=== PATIENT | female | born 1965 | race Caucasian/White ===

== ENCOUNTER 2020-04-23 01:55 | Outpatient (CLI) | payer OTHER, SELFPAY ==
[2020-04-23 19:19] LABS: SARS-CoV-2 RNA PCR Negative
== END 2020-04-23 01:56 | disposition home or self-care (01) ==
LOC: ANHCOVIDDT 01:55
PROVIDERS: Visit Provider Surgery Plastic and Reconstructive Surgery
DX: Z01.812 Encounter for preprocedural laboratory examination (principal); Z20.828 Contact with and (suspected) exposure to other viral communicable diseases
CPT/HCPCS: 87635; C9803; U0003

== ENCOUNTER 2020-04-25 01:14 | Day surgery (SDC) | payer OTHER, SELFPAY ==
[2020-04-17 14:02] VITALS: BMI 21.1
[2020-04-25] VITALS (7 sets, daily range): BP systolic 106–149; BP diastolic 61–84; PULSE 42–68; RESP 10–18; TEMP 36.1–36.3; O2SAT 93–100
[2020-04-25] MEDS: LACTATED RINGERS 1,000 ML 30 ML IV CONT ×2 (13:55→16:46)
--- NOTE | 2020-04-25 14:03 | WPDANESEPPF ---
Anes - Initial Pre Proc Eval Procedure: Operation Date: 04/25/20 15:30 Proposed Procedures p Bilateral Breast Implant Exchange - Toney Young MD Date/Time: 04/25/20 14:03 Surgeon: Toney Young MD Pre Op Diagnosis: hx of breast augmentation Patient Data Age: 54 Gender: F Height: 5 ft 8 in Weight: 63 kg Allergies Allergy/AdvReac Type Severity Reaction Status Date / Time No Known Allergies Allergy Verified 04/23/20 08:21 Home Medications Medication Instructions Recorded Confirmed Type melatonin 5 mg PO HS PRN 04/17/20 04/17/20 History carisoprodol 350 mg tablet 350 mg PO TID PRN #21 tablet 04/23/20 04/23/20 Rx docusate sodium 100 mg capsule 100 mg PO DAILY #14 cap 04/23/20 Rx ondansetron HCl 4 mg tablet 4 mg PO Q8H #28 tablet 04/23/20 Rx oxycodone-acetaminophen 5 mg-325 1 tablet PO Q6H PRN #15 tablet 04/23/20 04/23/20 Rx mg tablet Patient hx anesthesia problems: post op nausea/vomiting Family hx anesthesia problems: none PMFSH Past Medical History Medical History (Updated 04/25/20 @ 14:04 by Hamzah South MD) Anxiety Surgical History Surgical History (Updated 04/25/20 @ 14:04 by Hamzah South MD) H/O breast augmentation Social History Social History Smoking status: Never smoker Alcohol intake: current Substance use: never Substance use type: does not use Living arrangements: with family Gender identity (if verbalized by the patient): Female Sexual Orientation (if Verbalized by the Patient): Straight or Heterosexual Spiritual care concerns: No Anes - Eval Final PreProcedure Day of Procedure 04/25/20 14:03 Patient weight: normal Heart: regular rate and rhythm Lungs: clear to auscultation Airway: Mallampati scale class II Neurological: alert and oriented Last oral intake: >/= 8 hours ASA classification: I Emergent: no Anesthetic plan: proceed Anesthesia type and monitoring: general LMA and standard monitoring Informed Consent: The patient's anesthetic plan and its attendant risks and benefits were discussed with the patient/family/POA. Questions were solicited and answers provided to the satisfaction of the patient/family/POA.
[2020-04-25] MEDS: SCOPOLAMINE 1.5 MG PATCH TRANSDERM (14:15)
[2020-04-25] MEDS: FAMOTIDINE 20 MG/2 ML VIAL IV PUSH (14:17)
[2020-04-25] MEDS: ONDANSETRON INJ 4 MG/2 ML VIAL IV PUSH (14:18)
--- NOTE | 2020-04-25 14:52 | WPDHPUPDATE1 ---
History and Physical Update Update Date/Time: 04/25/20 14:52 History and Physical has been reviewed, including an updated exam of the patient. There are NO changes in the patient's condition. Risks, benefits, and alternatives have been discussed and questions answered. Patient agrees to proceed with procedure.
--- NOTE | 2020-04-25 15:11 | P.OP_ITS ---
Procedure Note - Detailed Date of procedure: 04/25/20 Pre-op diagnosis: hx of breast augmentation Post-op diagnosis: same Procedure performed: Bilateral breast implant exchange Description of procedure: In the preoperative holding area we discussed her risks, benefits, alternatives in great detail. I want her to be very realistic about the risks involved as well as expectations. We discussed final sizing in extensive detail. I want to make sure she was well informed making the right decision for her. All questions answered to her satisfaction today and consent obtained. She was taken to the operating room placed supine on the operating room table. Anesthesia was provided by anesthesiology and she was prepped and draped in the standard sterile fashion. Surgical time-out was taken. 1% lidocaine and 0.25% Marcaine with epinephrine was used anesthetize as a field block. Tegaderm nipple Pa were placed.A 15 blade used to make an incision along the IMF removing the previous incision. The implants were identified and these were removed. I verified the size previously were 270cc The left capsule was extremely calcified. I did a new near total capsulectomy on the left removing any of the thickened concerning capsule. Because of the atypical appearance I did send this to pathology. I irrigated with more than 3 L of saline solution on TUR tubing. I then irrigated copiously with triple antibiotic and Betadine solution. Wash my gloves and introduced the implants into the pocket using a Driver funnel. This was closed using 2-0 Vicryl followed by 3-0 Monocryl in a running subcuticular 4-0 Monocryl and tissue glue. Tolerated well. Anesthesia: GLMA Surgeon: Toney Young MD Estimated blood loss (mL): 20 Drains: No Packing: No Pathology: yes (Left breast capsule) Complications: No immediate complications Condition: stable Disposition: PACU Findings: Bilateral implant exchange, old implants 270cc saline. [facility] Right REF [id number] SN [id number] Left REF [id number] SN [id number]
[2020-04-25] MEDS: ceFAZolin 2 GM/D5W 50 ML 2 GM/50 ML BAG IVPB (15:21)
[2020-04-25] MEDS: LIDO 1%/EPINEPHRINE 1:100,000 20 ML VIAL 30 ML INFILTRATE (15:52)
[2020-04-25] MEDS: fentaNYL CITRATE INJ (*CRX) 100 MCG/2 ML VIAL 25 MCG IV PUSH ×2 (17:25→17:30)
[2020-04-25] MEDS: oxyCODONE HCL (*CRX) 5 MG TAB IR PO (18:07)
== END 2020-04-25 18:50 | disposition home or self-care (01) ==
PROVIDERS: Visit Provider Surgery Plastic and Reconstructive Surgery
PROC: (CPT 19342; principal; 2020-04-25 15:30)
DX: Z41.1 Encounter for cosmetic surgery (principal)
CPT/HCPCS: 19371; 19340; 19328; 88304; A9270; J0690; J1100; J1580; J2250; J2405; J2704; J3010; J7120

== ENCOUNTER 2020-09-02 00:36 | Day surgery (SDC) | payer OTHER, SELFPAY ==
[2020-08-26 16:37] VITALS: BMI 21.3
[2020-09-02] VITALS (9 sets, daily range): BP systolic 118–155; BP diastolic 59–89; PULSE 47–74; RESP 10–18; TEMP 36.4–36.7; O2SAT 100
[2020-09-02] MEDS: LACTATED RINGERS 1,000 ML 30 ML IV CONT ×2 (11:30→16:09)
--- NOTE | 2020-09-02 12:54 | WPDANESEPPF ---
Anes - Initial Pre Proc Eval Procedure: Operation Date: 09/02/20 13:30 Proposed Procedures p Bilateral Inframammary Fold Revision, Possible Right Capsulectomy - Toney Young MD Date/Time: 09/02/20 12:54 Surgeon: Toney Young MD Pre Op Diagnosis: hx of breast augmentation Patient Data Age: 54 Gender: F Height: 1.73 m Weight: 65.7 kg Last Vital Signs Temp 36.7 C 09/02/20 11:24 Pulse 47 L 09/02/20 11:24 Resp 18 09/02/20 11:24 BP 118/75 09/02/20 11:24 Pulse Ox 100 09/02/20 11:24 Allergies Allergy/AdvReac Type Severity Reaction Status Date / Time No Known Allergies Allergy Verified 09/02/20 11:32 Home Medications Medication Instructions Recorded Confirmed Type melatonin 10 mg PO HS PRN 04/17/20 09/02/20 History docusate sodium 100 mg capsule 100 mg PO DAILY #14 cap 08/21/20 09/02/20 Rx ondansetron HCl 4 mg tablet 4 mg PO Q8H #28 tablet 08/21/20 09/02/20 Rx oxycodone-acetaminophen 5 mg-325 1 tablet PO Q6H PRN #15 tablet 08/24/20 09/02/20 Rx mg tablet Patient hx anesthesia problems: post op nausea/vomiting Family hx anesthesia problems: none PMFSH Past Medical History Medical History Anxiety Surgical History Surgical History H/O breast augmentation Social History Social History Smoking status: Never smoker Substance use: never Substance use type: does not use Living arrangements: with family Gender identity (if verbalized by the patient): Female Spiritual care concerns: No Anes - Eval Final PreProcedure Day of Procedure 09/02/20 12:54 Patient weight: normal Heart: regular rate and rhythm Lungs: clear to auscultation and normal air movement Airway: Mallampati scale class II Neurological: alert and oriented Last oral intake: >/= 8 hours ASA classification: I Emergent: no Anesthetic plan: proceed Anesthesia type and monitoring: general LMA and standard monitoring Informed Consent: The patient's anesthetic plan and its attendant risks and benefits were discussed with the patient/family/POA. Questions were solicited and answers provided to the satisfaction of the patient/family/POA.
[2020-09-02] MEDS: SCOPOLAMINE 1.5 MG PATCH TRANSDERM (13:07)
[2020-09-02] MEDS: FAMOTIDINE 20 MG/2 ML VIAL IV PUSH (13:07)
--- NOTE | 2020-09-02 13:38 | WPDHPUPDATE1 ---
History and Physical Update Update Date/Time: 09/02/20 13:38 History and Physical has been reviewed, including an updated exam of the patient. There are NO changes in the patient's condition. Risks, benefits, and alternatives have been discussed and questions answered. Patient agrees to proceed with procedure.
[2020-09-02] MEDS: MIDAZOLAM HCL (*CRX) 2 MG/2 ML VIAL IV PUSH (13:50)
--- NOTE | 2020-09-02 14:16 | PM.PROC ---
Procedure Note - Detailed Date of procedure: 09/02/20 Pre-op diagnosis: hx of breast augmentation Post-op diagnosis: same Procedure performed: 1. Revision bilateral IMF 2. Right partial capsulectomy Description of procedure: Preoperatively the risks, benefits, alternatives were discussed in extensive detail. I want her to be very realistic about the risks involved as well as expectations. Made sure answered all of her questions to her satisfaction. She understands she will always have a degree of asymmetry. She was taken to the operating room placed supine on the operating room table. Anesthesia was provided by anesthesiology and prepped and draped in a standard sterile fashion. Surgical time-out was taken. 1% lidocaine and 0.25% Marcaine with epinephrine was used anesthetize as a field block. Bilaterally excise the previous IMF scar. On the right I removed the anterior portion that capsule and allowed the IMF to settle to the preoperatively planned location. On the left I completed a inferior popcorn capsulorrhaphy in order to elevate the left breast implant as well as along the lateral aspect as she had some lateral migration of the implant. Finally a superior capsulotomy to make sure there was good release. I copiously irrigated with Betadine bacitracin containing solution. I then closed using a 2-0 Vicryl securing to the deep fascia to maintain that position. I placed her in a sitting position to make sure we had good symmetry between sides which we did. I then closed with 3-0 Monocryl in a running subcuticular 4-0 Monocryl and tissue glue. She tolerated well. Dressings were placed followed by surgical bra. She was awoke and taken to the PACU without difficulty. All instrument sponge counts were correct at the end of the case. Anesthesia: GLMA Surgeon: Toney Young MD Estimated blood loss (mL): 5 Drains: No Packing: No Pathology: none sent Complications: No immediate complications Condition: stable Disposition: PACU
[2020-09-02] MEDS: ceFAZolin 2 GM/D5W 50 ML 2 GM/50 ML BAG IVPB (14:50)
--- NOTE | 2020-09-02 14:50 | SUR.PREOP ---
1330 PT UPDATED ON TIME DELAY FOR SURGERY. WARM BLANKETS GIVEN PER PT REQUEST.
[2020-09-02] MEDS: LIDO 1%/EPINEPHRINE 1:100,000 50 ML VIAL 34 ML INFILTRATE (15:28)
[2020-09-02] MEDS: fentaNYL CITRATE INJ (*CRX) 100 MCG/2 ML VIAL 25 MCG IV PUSH ×5 (16:28→17:11)
[2020-09-02] MEDS: oxyCODONE HCL (*CRX) 5 MG TAB IR PO (18:01)
== END 2020-09-02 18:21 | disposition home or self-care (01) ==
PROVIDERS: Visit Provider Surgery Plastic and Reconstructive Surgery
PROC: (CPT 19342; principal; 2020-09-02 13:30)
DX: Z41.1 Encounter for cosmetic surgery (principal); F41.9 Anxiety disorder, unspecified
CPT/HCPCS: 19370; A9270; J0690; J1100; J1200; J1580; J2250; J2405; J2704; J3010; J7120